=== PATIENT | female | born 1990 | race Caucasian/White ===

== ENCOUNTER 2022-07-16 07:04 | Outpatient (CLI) | payer MEDICAID, SELFPAY ==
[2022-07-16 08:22] LABS: Basophils Percent Auto 0.3 % (0.2-1.2); Eosinophils Absolute Auto 0.4 K/mm3 (0-0.3); Eosinophils Percent Auto 3.9 % (0-4.4); Hematocrit 36.8 % (37.0-47.0); Hemoglobin 12.6 g/dL (12.0-15.0); Immature Granulocyte Absolute 0.06 K/mm3 (0.00-0.031); Immature Granulocyte Percent A 0.7 % (0-0.5); Lymphocytes Absolute Auto 1.71 K/mm3 (0.9-3.2); Lymphocytes Percent Auto 18.7 % (18.3-44.2); Mean Corpuscular HGB Conc 34.2 g/dl (32-36); Mean Corpuscular Volume 99.2 fl (80-100); Mean Platelet Volume 10.2 fl (7.4-10.4); Monocytes Absolute Auto 0.6 K/mm3 (0.1-0.6); Monocytes Percent Auto 6.3 % (2.6-8.5); Neutrophils Absolute Auto 6.4 K/mm3 (1.3-6.7); Neutrophils Percent Auto 70.1 % (45.5-73.1); Platelet Count Result 168 k/mm3 (150-375); Red Blood Count 3.71 M/mm3 (4.2-5.4); Red Cell Distribution Width 12.5 % (11.5-14.5); White Blood Count 9.2 K/mm3 (4.5-10.0)
[2022-07-16 08:31] LABS: Glucose 1 Hour PP 50gm Dose 100 mg/dL
[2022-07-16 09:14] LABS: HIV 1/2 Ab P24 Ag Result Negative (Negative)
== END 2022-07-16 07:05 | disposition home or self-care (01) ==
PROVIDERS: Visit Provider Obstetrics & Gynecology
DX: Z34.90 Encounter for supervision of normal pregnancy, unspecified, unspecified trimester (principal)
CPT/HCPCS: 36415; 82947; 85025; 86703; G0432

== ENCOUNTER 2022-08-19 13:36 | Outpatient (CLI) | payer OTHER, SELFPAY ==
[2022-08-19 15:53] LABS: Rapid Plasma Reagin Non-Reactive (NonReactive)
[2022-08-19 20:51] LABS: Hepatitis B Surface Antigen Negative (Negative); Rubella IgG Antibody 20.1 IU/ML
== END 2022-08-19 13:37 | disposition home or self-care (01) ==
LOC: ANHLAB 13:43
PROVIDERS: Visit Provider Obstetrics & Gynecology
DX: Z34.90 Encounter for supervision of normal pregnancy, unspecified, unspecified trimester (principal)
CPT/HCPCS: 36415; 86592; 86644; 86747; 86762; 86900; 86901; 87086; 87340

== ENCOUNTER 2022-10-15 07:32 | Inpatient (IN) | payer OTHER, SELFPAY ==
[2022-10-15] VITALS (24 sets, daily range): BP systolic 95–129; BP diastolic 54–99; PULSE 94–122; TEMP 36.8–37.2; O2SAT 97; BMI 26.4
[2022-10-15 08:24] LABS: Basophils Absolute Auto 0.1 K/mm3 (0.0-0.1); Basophils Percent Auto 0.7 % (0.2-1.2); Eosinophils Absolute Auto 0.1 K/mm3 (0-0.3); Eosinophils Percent Auto 1.5 % (0-4.4); Hematocrit 39.4 % (37.0-47.0); Hemoglobin 13.6 g/dL (12.0-15.0); Immature Granulocyte Absolute 0.05 K/mm3 (0.00-0.031); Immature Granulocyte Percent A 0.6 % (0-0.5); Lymphocytes Absolute Auto 1.46 K/mm3 (0.9-3.2); Lymphocytes Percent Auto 16.8 % (18.3-44.2); Mean Corpuscular HGB Conc 34.5 g/dl (32-36); Mean Corpuscular Hemoglobin 33.3 pg (26-34); Mean Corpuscular Volume 96.6 fl (80-100); Mean Platelet Volume 11.8 fl (7.4-10.4); Monocytes Absolute Auto 0.6 K/mm3 (0.1-0.6); Monocytes Percent Auto 6.5 % (2.6-8.5); Neutrophils Absolute Auto 6.4 K/mm3 (1.3-6.7); Neutrophils Percent Auto 73.9 % (45.5-73.1); Platelet Count Result 163 k/mm3 (150-375); Red Blood Count 4.08 M/mm3 (4.2-5.4); Red Cell Distribution Width 12.9 % (11.5-14.5); White Blood Count 8.7 K/mm3 (4.5-10.0)
--- NOTE | 2022-10-15 08:27 | LDADM ---
This patient, Lisandra Freeman, was admitted to Labor/Delivery/Recovery 102 on 10/15/22 at 07:32. Plans for labor, pain management and were discussed with patient. Patient/family oriented to hospital policies and general routines including ID bracelet, bed and alarms, visiting hours, pain management, procedures, bathroom and other care routines, personal items, smoking policy, room service/diet and guest tray routines, infant security routines, and visiting hours. Patient/Family are encouraged to report perceived risks to care and to ask questions if they do not understand what they are told or what they should do. See OBIX for further documentation.
--- NOTE | 2022-10-15 11:59 | WPDHPUPDATE1 ---
History and Physical Update Update Date/Time: 10/15/22 11:59 32 yo at 39w0d who presents after spontaneous rupture of membranes at 0600. pt reports regular contractions q 5 min. She reports good movement. History and Physical has been reviewed, including an updated exam of the patient. There are NO changes in the patient's condition. Risks, benefits, and alternatives have been discussed and questions answered. Patient agrees to proceed with procedure. A/P: 32 yo at 39w0 who presents with SROM grossly ruptured on exam admit to L&D routine admission orders Rh+ GBS neg FHT cat 1 expectant management
[2022-10-15] MEDS: LACTATED RINGERS 1,000 ML 125 ML IV CONT (13:01)
[2022-10-15] MEDS: OXYTOCIN 30 UNITS/NS 500 ML 30 UNITS/500 ML BAG IV CONT (13:01)
[2022-10-15 15:30] LABS: Rapid Plasma Reagin Non-Reactive (NonReactive)
--- NOTE | 2022-10-15 15:53 | PM.OBPRVD ---
OB - Delivery Note Procedure Procedure: Patient pushed for a spontaneous vaginal delivery. A nuchal cord x 2 was noted and delivered through. The fetus was delivered atraumatically and placed on the maternal abdomen. The cord was clamped and cut after 1 minute of life. The cord was double clamped and cut and a segment of cord was collected for cord gases. Cord blood was collected for blood type and Coomb's testing. The placenta delivered spontaneously and was noted to be intact. The perineum was inspected and there were no lacerations noted. The uterus was firm and good hemostasis was noted. The patient and fetus were stable in the delivery room. Induction method: None Delivery augmentation: Pitocin Delivery monitor: External FHT Route of delivery: Episiotomy description: None Laceration Description: None Specimen: No Quantitative Blood Loss (ml): 200 Anesthesia type: None Disposition: Floor () Complications: No immediate complications [place] Baby Date of : 10/15/22 Time of : 15:44 Weeks of gestation at delivery: 39 Infant gender: Female Weight (pounds): 6 Weight (ounces): 13 presentation: vertex position: Right Occiput Anterior Placenta delivery description: Spontaneous Cord Vessel Description: 3 Vessels, Nuchal Cord (x2) and Loose score one minute: 8 score five minutes: 9
[2022-10-15] MEDS: OXYTOCIN 30 UNITS/NS 500 ML 30 UNITS/500 ML BAG 125 UNITS IV CONT (16:20)
[2022-10-16 05:28] LABS: Hematocrit 35.5 % (37.0-47.0)
[2022-10-16 07:25] VITALS: BP 119/70; PULSE 81; RESP 16; TEMP 36.7; O2SAT 100
--- NOTE | 2022-10-16 07:34 | PM.OBDSVD ---
DS: Admitting Diagnosis Discharge Date 10/16/22 Admitting Diagnosis spontaneous rupture of membranes at term OB - DS: Summary OB Procedures : None OB Procedures Intrapartum: Spontaneous Vag Delivery OB Procedures: : None Status at Discharge Functional status at discharge: independent ambulation Overall status at discharge: patient is back to baseline Time Spent with Patient Time attestation: Total time spent providing and/or coordinating discharge services: Time spent: Less than 30 minutes Exam Const: General: comfortable and no acute distress Resp: Effort & Inspection: normal respiratory effort Auscultation: clear to auscultation bilaterally Cardio: Rate: regular rate GI: GI Palp: Yes Soft to palpation Auscultation: normal bowel sounds Other: Fundus firm below umbilicus Psych: Appearance: grossly normal Mental Status: mental status grossly normal Affect: normal affect DS: Data Data Completed and Pending Labs on day of discharge: Labs from last 24 hours 10/16/22 10/15/22 10/15/22 05:17 08:18 08:17 WBC 8.7 RBC 4.08 L Hgb 12.0 13.6 Hct 35.5 L 39.4 MCV 96.6 MCH 33.3 MCHC 34.5 RDW 12.9 Plt Count 163 MPV 11.8 H Immature Gran % (Auto) 0.6 H Neut % (Auto) 73.9 H Lymph % (Auto) 16.8 L [place] % (Auto) 6.5 Eos % (Auto) 1.5 Baso % (Auto) 0.7 Lymph # (Auto) 1.46 [place] # (Auto) 0.6 Eos # (Auto) 0.1 Baso # (Auto) 0.1 Abs Immat Gran (auto) 0.05 H Absolute Neuts (auto) 6.4 Absolute Nucleated RBC 0.0 Nucleated RBC % 0.0 RPR Blood Type O Positive Antibody Screen Negative 10/15/22 08:17 WBC RBC Hgb Hct MCV MCH MCHC RDW Plt Count MPV Immature Gran % (Auto) Neut % (Auto) Lymph % (Auto) [place] % (Auto) Eos % (Auto) Baso % (Auto) Lymph # (Auto) [place] # (Auto) Eos # (Auto) Baso # (Auto) Abs Immat Gran (auto) Absolute Neuts (auto) Absolute Nucleated RBC Nucleated RBC % RPR Non-reactive Blood Type Antibody Screen Discharge Plan Discharge Attending physician on discharge: Raul Fitzgerald Discharging Clinician: Raul Fitzgerald Patient Disposition: Home, Self-Care Activity: as tolerated and pelvic rest Diet: regular Patient Instructions: Antibiotic Form, Vaginal Delivery (DC) Stand Alone Forms: General Discharge Information Follow-up/Referrals: Lisandra Norris MD [Physician] - 6 Weeks Discharge Medications: New acetaminophen [Mapap (acetaminophen)] 325 mg Tablet 650 mg PO Q6H PRN (Reason: Mild Pain (1-3) Or Headache) Qty: 30 0RF ibuprofen 600 mg Tablet 600 mg PO Q6H PRN (Reason: Cramping) Qty: 30 0RF Continued 21-iron fu-folic acid 14 mg iron- 400 mcg tablet 1 tablet PO DAILY cholecalciferol (vitamin D3) 325 mcg (13,000 unit) capsule 325 mcg PO WEEKLY Date of admission: 10/15/22 07:32 Primary Care Provider: UNKNOWN,DOCTOR Admitting Provider: Lisandra Norris Attending physician on admission: Lisandra Norris Condition: Stable
[2022-10-16] MEDS: DOCUSATE SODIUM 100 MG CAPSULE PO (08:42)
[2022-10-16] MEDS: MULTIVIT/MIN/PREN/FOL AC/IRON TABLET 1 TAB PO (08:42)
[2022-10-16 12:00] VITALS: BP 118/76; PULSE 91; RESP 16; TEMP 37; O2SAT 97
== END 2022-10-16 17:20 | disposition home or self-care (01) | DRG 560 ==
LOC: ANHLDR 15:22 → ANHOB2 10-16 07:36 → ANHLDR 10-20 08:24 → ANHOB2 10-20 08:24
PROVIDERS: Admitting Provider Student in an Organized Health Care Education/Training Program; Visit Provider Student in an Organized Health Care Education/Training Program
DX: O69.81X0 Labor and delivery complicated by cord around neck, without compression, not applicable or unspecified (principal); Z37.0 Single live birth; Z3A.39 39 weeks gestation of pregnancy
CPT/HCPCS: 36415; 84112; 85014; 85018; 85025; 86592; 86850; 86900; 86901; A9270; J2590; J7120

== ENCOUNTER 2022-11-27 10:05 | Emergency (ER) | payer OTHER, SELFPAY ==
[2022-11-27 10:48] VITALS: BP 124/95; PULSE 114; RESP 18; TEMP 36.6; O2SAT 96
--- NOTE | 2022-11-27 11:54 | ED.LOWEXIN ---
HPI - Extremity Injury (Lower) General Chief Complaint: Extremity Injury, Lower <TODD Lomeli Last Filed: 11/27/22 14:36> Stated Complaint: left side leg and hip pain. <Mckayla Asher PA-C - Last Filed: 11/27/22 14:36> Time Seen by Provider: 11/27/22 11:33 <TODD Lomeli Last Filed: 11/27/22 14:36> History of Present Illness HPI Narrative: Patient is a 32-year-old female here for evaluation of left lower extremity pain over the past several weeks. Patient states that the pain begins in her low back and radiates down the lateral aspect of her left leg into her foot. The pain is worse with certain positions and movements. She was taking ibuprofen and Tylenol with good relief but stopped taking these because she did not want to take too much. She saw a physical therapist and her family who instructed her with exercises to do that she has been compliant with; presents today due to concerns of some difficulty dorsiflexing her foot. Patient has been able to walk. No saddle anesthesia, incontinence or retention of bowel or bladder. <TODD Lomeli Last Filed: 11/27/22 14:36> Related Data Home Medications: Home Medications Medication Instructions Recorded Confirmed vits,calcium 21-iron fum 1 tablet PO DAILY 06/23/22 10/15/22 14 mg iron-folic acid 400 mcg tablet <TODD Lomeli Last Filed: 11/27/22 14:36> Allergies/Adverse Reactions: Allergies Allergy/AdvReac Type Severity Reaction Status Date / Time cefaclor [From [facility]] Allergy Severe Rash Verified 11/27/22 10:52 <TODD Lomeli Last Filed: 11/27/22 14:36> Review of Systems Review of Systems: Gen: Denies fevers or chills Eyes: Denies eye pain or visual change ENT: Denies congestion Respiratory: Denies shortness of breath or cough CV: Denies chest pain or palpitations GI: Denies abdominal pain nausea, emesis or diarrhea : denies burning, urgency, frequency or hematuria Musculoskeletal: Reports left leg pain. Neuro: Denies numbness, tingling, weakness or focal weakness Skin: Denies rash Except as documented, all other systems reviewed and negative <Mckayla Asher PA-C - Last Filed: 11/27/22 14:36> [facility] Past Medical History Medical History: Medical History <Mckayla Asher PA-C - Last Filed: 11/27/22 14:36> Family History Family History: Family History Other Breast cancer Diabetes mellitus Heart disease Hypertension <Mckayla Asher PA-C - Last Filed: 11/27/22 14:36> Social History Social History: Social History (Updated 11/08/22 @ 09:18 by Ladi Montilla MA) Smoking status: Never smoker Alcohol intake: never Substance use: never Substance use type: does not use Lack of Transportation: No Lack of Food: Never True Current Housing: I Have Housing Concerned About Future Housing: No Difficulty Paying Gas/Electric Bills: No Difficulty Paying for Meds: No Currently Unemployed: No Education: Bachelor's Degree Difficulty w/ Childcare or Family Care: No Additional occupation/education comments: stay at home mom Gender identity (if verbalized by the patient): Female Sexual Orientation (if Verbalized by the Patient): Straight or Heterosexual Spiritual care concerns: No <Mckayla Asher PA-C - Last Filed: 11/27/22 14:36> Exam Narrative: APPEARANCE: Well appearing, no pain in distress, well-nourished. Head: Normocephalic and atraumatic. EYES: PERRLA/EOMI, conjunctivae clear NOSE: No nasal drainage EARS: External ear normal in appearance THROAT: Oropharynx is clear. Mucous membranes are moist. NECK: Supple. No adenopathy, no masses. RESPIRATORY: Airway patent, respirations nonlabored. Clear to auscultation bilate
[2022-11-27 12:19] VITALS: BP 131/82; PULSE 92; RESP 18; O2SAT 97
== END 2022-11-27 12:21 | disposition home or self-care (01) ==
PROVIDERS: Emergency Provider Emergency Medicine
DX: M54.42 Lumbago with sciatica, left side (principal)
CPT/HCPCS: 99281

== ENCOUNTER 2023-01-04 06:34 | Outpatient (CLI) | payer OTHER, SELFPAY ==
--- NOTE | ~2023-01-04 | MR_ITS ---
EXAMINATION: MR lumbar spine wo con DATE: 01/04/2023 07:32 INDICATION: Sciatica. Low back pain. Left foot drop. TECHNIQUE: Magnetic resonance imaging (MRI) of the lumbar spine was performed without intravenous con trast. Sequences included sagittal T2-weighted FSE, sagittal T2-weighted FS FSE, sagittal T1-weighted FSE, and axial T2-weighted FSE. COMPARISON: None FINDINGS: There is 7 degrees dextrocurvature of lumbar spine. There is mild chronic anterior wedging of T12-L3 vertebral bodies. There is mild chronic height loss of L5 vertebral body posteriorly. There is mildly decreased disc height at L1-L2 and L4-L5 and moderately decreased disc height at L5-S1. Th e distal spinal cord signal intensity is normal. The conus medullaris is at L1-L2. The following disc levels are specifically discussed: L1-L2: The disc is bulging. There is no facet joint osteoarthritis. There is no neural foraminal sten osis. There is mild central canal stenosis. L2-L3: The disc does not extend beyond the endplate margin. There is moderate right and mild left fac et joint osteoarthritis. There is no neural foraminal stenosis. There is no central canal stenosis. L3-L4: The disc is bulging and has an annular fissure. There is mild right and moderate left facet jeannie int osteoarthritis. There is no neural foraminal stenosis. There is mild central canal stenosis. L4-L5: The disc is bulging with superimposed right central extrusion. There is moderate bilateral fac et joint osteoarthritis. There is mild bilateral neural foraminal stenosis. There is mild central can al stenosis. L5-S1: The disc is bulging with superimposed central and left subarticular zone extrusion with mass e ffect on the left S1 nerve root in left lateral recess. There is moderate right and severe left facet joint osteoarthritis. There is mild bilateral neural foraminal stenosis. There is mild central canal stenosis. There is severe stenosis of left lateral recess. IMPRESSION: 1. Moderate lumbar spondylosis. Of note, an extrusion at L5-S1 exerts mass effect on left S1 nerve ro ot. Reviewed, dictated and finalized at location A. [employer] IMPRESSION: 1. Moderate lumbar spondylosis. Of note, an extrusion at L5-S1 exerts mass effe ct on left S1 nerve root.
== END 2023-01-04 06:35 | disposition home or self-care (01) ==
PROVIDERS: Visit Provider Nurse Practitioner Adult Health
DX: M47.26 Other spondylosis with radiculopathy, lumbar region (principal); M51.27 Other intervertebral disc displacement, lumbosacral region
CPT/HCPCS: 72148

== ENCOUNTER 2023-01-20 08:00 | Outpatient (RCR) | payer OTHER, SELFPAY ==
--- NOTE | 2022-12-21 10:46 | PTOPEVAL1 ---
Assessment and note entered by Nerissa Tate, PT, DPT Evaluation Information Assessment Status Evaluation Diagnosis lumbar radiculopathy Onset Nov 10 Subjective Information Pt states on Nov 10, she was getting into bed and tweaked her back. She states since then she has major back pain and with sciatic nerve pain. She states she went to the chiropractor who adjusted her and helped with her back pain. She states she has numbness, tingling, and weakness in her LLE and states her feet do not move at well. She states she has the worst pain in the morning and it gets better throughout the day. She states she trips over her feet all the time and is worried as she is currently caring for her . Reported Pain Level Pain Score 3: Self Report Assessment PT Clinical Summary Lisandra presents to therapy today for her initial evaluation with a diagnosis of lumbar radiculopathy. Today she demonstrates decreased active ROM of her LLE, limited by strength. She has decreased strength on the L side with a majority of her deficits noted in the L ankle. She demonstrates L sided foot drop during swing phase and foot slap during heel strike during ambulation , as well as a R sided trunk lean. She had a positive Slump test as well as a straight leg raise. She did not initial demonstrate a movement bias to alter symptoms this date. Skilled physical therapy services are indicated to address the deficits noted above, to promote centralization of symptoms, to manage pain, and to return to baseline function. Plan of Care Interventions Check Out for Orthotic/Pr,Electrical Stimulation, Gait Training,Hot Pack/Cold Pack,Manual Therapy, Mechanical Traction,Neuro Re-education,Patient/ Caregiver Education,Therapeutic Activities, Therapeutic Exercise PT Services Indicated Yes Treatment Frequency and 2x/wk for 4 wks Duration These treatments will address the objective and functional deficits as defined above. The patient will be advanced safely and appropriately in order for the patient to progress towards his/her prior level of function. Additional exercises will be introduced and as well as a comprehensive home exercise program upon discharge, if needed, ?to ensure carryover of functional gains achieved in the clinic. This treatment plan has been reviewed and agreement upon by the patient.
--- NOTE | 2023-01-20 08:51 | PTOPPROG ---
Assessment and note entered by Nerissa Tate, PT, DPT Evaluation Information Assessment Status Progress Diagnosis lumbar radiculopathy Onset Nov 10 Subjective Information Pt states she feels like her core strength and her body awareness has improved. She is unsure if her radicular symptoms have improved or if she is just getting more used to them. Pt states she follows up with neuro in 1 week. Assessment PT Clinical Summary Lisandra presents to therapy today for her progress report following 7 visits of skilled therapy to treat her lumbar radiculopathy. Today she continues to demonstrates significant LLE weakness when compared to her RLE. She continues to report numbness and tingling down her LLE. She has made minimal progress since starting therapy. It is recommended she follow up with her referring provider and neuro prior to continuing therapy. Plan of Care Interventions Check Out for Orthotic/Pr,Electrical Stimulation, Gait Training,Hot Pack/Cold Pack,Manual Therapy, Mechanical Traction,Neuro Re-education,Patient/ Caregiver Educati,Therapeutic Activities, Therapeutic Exercise PT Services Indicated Yes Treatment Frequency and pending follow up with neuro Duration These treatments will address the objective and functional deficits as defined above. The patient will be advanced safely and appropriately in order for the patient to progress towards his/her prior level of function. Additional exercises will be introduced and as well as a comprehensive home exercise program upon discharge, if needed, ?to ensure carryover of functional gains achieved in the clinic. This treatment plan has been reviewed and agreement upon by the patient.
--- NOTE | 2023-02-22 13:49 | PTOPDC ---
Assessment and note entered by Nerissa Tate, PT, DPT Evaluation Information Assessment Status Discharge - Pt Not Present Diagnosis lumbar radiculopathy Onset Nov 10 Subjective Information Called and spoke with patient to follow up. She states she is having surgery next week and after that it will be determined if she needs therapy or not. She knows she will need a new order if she is to continue. Assessment PT Clinical Summary Lisandra completed 8 visits of skilled therapy from 12/21/22 to 01/20/23. She will be discharged at this time pending surgery. Plan of Care Interventions Check Out for Orthotic/Pr,Electrical Stimulation, Gait Training,Hot Pack/Cold Pack,Manual Therapy, Mechanical Traction,Neuro Re-education,Patient/ Caregiver Educati,Therapeutic Activities, Therapeutic Exercise PT Services Indicated Yes Treatment Frequency and discharge Duration
== END 2023-02-22 14:51 | disposition home or self-care (01) ==
LOC: ANHGOSHPT 08:00
PROVIDERS: Visit Provider Nurse Practitioner Adult Health
DX: M54.16 Radiculopathy, lumbar region (principal)
CPT/HCPCS: 97012; 97110; 97112; 97140; 97163; 97530

== ENCOUNTER 2023-02-16 14:55 | Outpatient (CLI) | payer OTHER, SELFPAY ==
[2023-02-16 15:39] LABS: Basophils Percent Auto 0.3 % (0.2-1.2); Eosinophils Absolute Auto 0.2 K/mm3 (0-0.3); Eosinophils Percent Auto 2.6 % (0-4.4); Hematocrit 40.6 % (37.0-47.0); Hemoglobin 13.9 g/dL (12.0-15.0); Immature Granulocyte Absolute 0.02 K/mm3 (0.00-0.031); Immature Granulocyte Percent A 0.3 % (0-0.5); Lymphocytes Percent Auto 40.3 % (18.3-44.2); Mean Corpuscular HGB Conc 34.2 g/dl (32-36); Mean Corpuscular Hemoglobin 32.9 pg (26-34); Mean Corpuscular Volume 96.2 fl (80-100); Mean Platelet Volume 10.2 fl (7.4-10.4); Monocytes Absolute Auto 0.5 K/mm3 (0.1-0.6); Monocytes Percent Auto 6.6 % (2.6-8.5); Neutrophils Absolute Auto 3.5 K/mm3 (1.3-6.7); Neutrophils Percent Auto 49.9 % (45.5-73.1); Platelet Count Result 229 k/mm3 (150-375); Red Blood Count 4.22 M/mm3 (4.2-5.4); Red Cell Distribution Width 12.2 % (11.5-14.5)
[2023-02-16 15:48] LABS: Anion Gap 8 mmol/L (8-16); Blood Urea Nitrogen 17 mg/dL (7-17); Calcium 9.1 mg/dL (8.4-10.2); Carbon Dioxide 28 mmol/L (22-30); Chloride 104 mmol/L (98-107); Estimated Glomerular Filt Rate > 60; Glucose 100 mg/dL (65-110); Potassium 4.2 mmol/L (3.4-5.0); Sodium 140 mmol/L (137-145)
== END 2023-02-16 14:56 | disposition home or self-care (01) ==
LOC: ANHLAB 14:57
PROVIDERS: Visit Provider Neurological Surgery
DX: M21.372 Foot drop, left foot (principal); M54.16 Radiculopathy, lumbar region; Z01.818 Encounter for other preprocedural examination
CPT/HCPCS: 36415; 80048; 85025

== ENCOUNTER 2023-02-22 08:03 | Outpatient (CLI) | payer OTHER, SELFPAY ==
--- NOTE | 2023-02-22 08:11 | ECG_ITS ---
Measurements Intervals [place] Rate: 92 P: 80 OK: 141 QRS: 88 QRSD: 101 T: 68 QT: 333 QTc: 413 Interpretive Statements SINUS RHYTHM WITH SINUS ARRHYTHMIA BASELINE ARTIFACT- I, II, III, AVR, AVL, AVF NORMAL ECG NO PREVIOUS ECG AVAILABLE FOR COMPARISON Electronically Signed On 02-22-2023 8:59:44 CDT by Silvio Brown D.O.
[2023-02-22 09:52] LABS: INR 1.1; Prothrombin Time 13.5 Seconds (11.1-14.7)
[2023-02-22 09:53] LABS: Partial Thromboplastin Time 28.8 SECONDS (22.3-36.8)
== END 2023-02-22 08:04 | disposition home or self-care (01) ==
LOC: ANHSURGERY 08:08
PROVIDERS: Visit Provider Neurological Surgery
DX: M51.16 Intervertebral disc disorders with radiculopathy, lumbar region (principal); Z01.818 Encounter for other preprocedural examination
CPT/HCPCS: 36415; 85610; 85730; 86850; 86900; 86901; 93005

== ENCOUNTER 2023-03-16 00:51 | Day surgery (SDC) | payer OTHER, SELFPAY ==
[2023-02-21 15:20] VITALS: BMI 21.4
--- NOTE | 2023-02-21 15:24 | PC.NURSE ---
Addendum entered by Porsche Betts RN 03/08/23 14:51: PT TO ARRIVE AT 0900 ON 03/16/23 FOR SURGERY AT 1100. Original Note: Report to the Outpatient Waiting Room, entrance under the green pavilion located off [facility], at time 8:30 on date 03/02/23. Planned Procedure Time: 10:30. Time changes happen often and if your time is changed the preop area will call you the afternoon before. - You and your visitor will be asked to self-screen and do not enter if you have any COVID symptoms. - Only one visitor is requested with a max of two and NO children visitors are allowed at this time. - The patient visitor may be requested to leave or wait in car when not with patient due to distancing restrictions. - A mask is optional within the hospital at this time. Patients may have clear liquids (water, carbonated beverages, clear teas, apple juice) until 3 hours prior to surgery (7:30) with a maximum of 20 ounces. - No food from midnight until time of surgery Take the following medications with a SIP of water the morning of surgery: N/A DO NOT STOP ANY OF YOUR OTHER PRESCRIPTION MEDICATIONS PRIOR TO SURGERY EXCEPT THE FOLLOWING Medications to discontinue per physician: N/A Date to take last dose: N/A Please no make-up, nail maori, hairspray, perfume, deodorant, or body powder the day of surgery. No jewelry (including any body piercings) or valuables the day of surgery, leave them at home. Please take a shower or bath the night before, or the morning of, surgery with an antibacterial soap. Wear comfortable, loose fitting clothing. - Jewelry must be removed prior to entering the operating room. Rings and piercings that are not removed may be cut off. - The hospital will not accept responsibility for valuables. - Please leave all valuables, including medications, at home the day of surgery. If you are going home after surgery, a licensed otr truck driver must drive you home. - NO public transportation without another adult if you receive anesthesia. - We recommend that an adult stay with you for 24 hours following discharge. - We also recommend that you do not drive, make important decision, drink alcoholic beverages, or take any drugs that were not prescribed by your health care provider for at least 24 hours after your discharge time. Follow any additional instructions given to you from your surgeon. If you or anyone in your household have experienced Covid symptoms in the past week, please notify your surgeon or the nurse liaison at the phone number below for possible testing. Telephone instructions given to ARUN ENRIQUEZ and asked if any additional questions and then verbalized understanding. Patient advised to call surgeon office or pre surgery nurse liaison [phone] if any additional questions.
--- NOTE | 2023-03-08 14:52 | PC.NURSE ---
Pt states no changes in medications or health history since initial interview. New pre-op instructions reviewed with pt. Pt denies further questions at this time.
[2023-03-16] VITALS (18 sets, daily range): BP systolic 72–120; BP diastolic 43–75; PULSE 62–107; RESP 12–18; TEMP 36.9–37.1; O2SAT 100
--- NOTE | ~2023-03-16 | XR_ITS ---
XR fluoroscopy no charge Lumbar microdiscectomy TECHNIQUE: Fluoroscopy used during lumbar microdiscectomy performed by [Kaity Payton MD] on 03/16/2023. 3 seconds of fluoroscopy with 2 fluoroscopic images images captured. FINDINGS: Correlate with procedure note. IMPRESSION: Fluoroscopy used during lumbar microdiscectomy. Reviewed, dictated and finalized at location A.
--- NOTE | 2023-03-16 09:03 | P.PNAN_ITS ---
Anes - Initial Pre Proc Eval Procedure: Operation Date: 03/16/23 11:00 Proposed Procedures p Left L5-S1 Microdiscectomy - Kaity Payton MD Date/Time: 03/16/23 09:03 Surgeon: Kaity Payton MD Pre Op Diagnosis: lumbar disc herniation w/ radicuopathy, foot drop Patient Data Age: 32 Gender: F Height: 1.63 m Weight: 56.7 kg Allergies Allergy/AdvReac Type Severity Reaction Status Date / Time cefaclor [From Ceclor] Allergy Severe Rash Verified 03/16/23 10:00 Home Medications Medication Instructions Recorded Confirmed Type No Home Medications 02/21/23 03/08/23 History Patient hx anesthesia problems: none Family hx anesthesia problems: none Results Review: All pre-operative results and documents have been reviewed as part of the pre- operative evaluation. [facility] Past Medical History Medical History (Updated 03/16/23 @ 09:04 by Myles Emmanuel DO) Anxiety Lumbar radiculopathy Family History Family History Other Breast cancer Diabetes mellitus Heart disease Hypertension Social History Social History Smoking status: Never smoker Alcohol intake: never Substance use: never Substance use type: does not use Lack of Transportation: No Lack of Food: Never True Current Housing: I Have Housing Concerned About Future Housing: No Difficulty Paying Gas/Electric Bills: No Difficulty Paying for Meds: No Currently Unemployed: No Education: Bachelor's Degree Difficulty w/ Childcare or Family Care: No Living arrangements: with family Occupation/Education: unemployed Additional occupation/education comments: stay at home mom Gender identity (if verbalized by the patient): Female Sexual Orientation (if Verbalized by the Patient): Straight or Heterosexual Spiritual care concerns: No Anes - Eval Final PreProcedure Day of Procedure 03/16/23 09:03 Patient weight: normal Heart: regular rate and rhythm Lungs: clear to auscultation Airway: Mallampati scale class II Neurological: alert and oriented Last oral intake: >/= 8 hours ASA classification: II Emergent: no Anesthetic plan: proceed Anesthesia type and monitoring: general ETT and standard monitoring Results Review: All pre-operative results and documents have been reviewed as part of the pre- operative evaluation. Informed Consent: The patient's anesthetic plan and its attendant risks and benefits were discussed with the patient/family/POA. Questions were solicited and answers provided to the satisfaction of the patient/family/POA.
[2023-03-16] MEDS: LACTATED RINGERS 1,000 ML 30 ML IV CONT ×2 (09:30→12:55)
--- NOTE | 2023-03-16 10:11 | WPDHPUPDATE1 ---
History and Physical Update Update Date/Time: 03/16/23 10:11 History and Physical has been reviewed, including an updated exam of the patient. There are NO changes in the patient's condition. Risks, benefits, and alternatives have been discussed and questions answered. Patient agrees to proceed with procedure.
[2023-03-16] MEDS: ceFAZolin 2 GM/D5W 50 ML 2 GM/50 ML BAG IVPB (10:27)
[2023-03-16] MEDS: HEMOSTATIC MATRIX (SURGIFLO with THROMBIN) KIT 1 KIT XX (11:03)
[2023-03-16] MEDS: BUPIVACAINE/EPINEPHRINE 0.5% 50 ML VIAL 20 ML INFILTRATE (11:03)
--- NOTE | 2023-03-16 13:02 | P.OP_ITS ---
Procedure Note - Detailed Date of Procedure 03/16/23 Pre-op Diagnosis lumbar disc herniation w/ radicuopathy, foot drop Post-op Diagnosis Same Procedure Performed 1. Left L5-S1 microdiskectomy 2. Use of microscope for microsurgical dissection 3. Use of C-arm for fluoroscopy Surgeon Kaity Payton MD Operations And Maintenance Manager [facility] Anest[facility] General and Local Indications Ms. Freeman is a 32-year-old female with history of left lumbar radiculopathy and weakness in plantar and dorsiflexion of the left foot who was found to have a large disc herniation at L5-S1. Her pain essentially resolved with physical therapy and medications, but the weakness persisted. Surgery in the form of microdiskectomy was recommended to help her neurologic deficit improve more quickly. Risks including pain, infection, bleeding, CSF leak, nerve damage, worsening symptoms, failure to improve symptoms, weakness, paresthesias, and paralysis were discussed. The patient provided written informed consent to proceed. Findings Annulotomy noted on left side at L5-S1. No large free fragment was discovered. Small pieces of disc material and endplate were found. Small disc fragments below the PLL were found and removed. The nerve roots felt well decompressed. Description of Procedure The patient was brought into the OR where general anesthesia was induced. The patient was turned prone onto the operating table with Karthik frame. All pressure points were padded. The planned incision was marked with the use of the C-arm. The incision was prepped and draped in usual sterile fashion. Time out was performed, and local anesthetic was injected into the planned incision. The midline lumbar incision was opened with a 10-blade scalpel. The soft tissue was dissected with the bovie to the spinous process. A subperiosteal dissection was performed to expose the left L5 lamina. An xray confirmed the correct level. Self-retaining retractors were placed. The high speed drill was used to create a laminotomy at L5. Ligamentum and additional bone were removed with a kerrison. The dura and S1 nerve root were exposed. A Woodsen and 4 penfield were used to access the ventral epidural space. An annulotomy was noted on the left side, but there was no significant disc herniation found. Another xray was obtained to confirm we were at the L5-S1 level. Small pieces of endplate and disc material were found and removed. The annulotomy was bipolared and enlarged with an 11- blade scalpel. A nerve hook was used to elevate any free disc fragments which were removed with a pituitary. Bleeding was controlled with the bipolar and Kurtz rgiflo. The nerve roots and dura felt well decompressed. The surgical site was copiously irrigated. The fascia was closed with 0-vicryl. The dermis was closed with 2-0 and 3-0 vicryl. The skin was closed with 4-0 monocryl. Skin glue was applied to the incision. The patient was returned supine to the stretcher, extubated, and taken to PACU. Codes: 59197, 33694 Implants None Estimated Blood Loss -100.0 Drains No Packing No Pathology None sent Complications None Condition Stable Disposition Same day [facility] Billing Surgery - Charge Forward: Surgery Billing
[2023-03-16] MEDS: fentaNYL CITRATE INJ (*CRX) 100 MCG/2 ML VIAL 25 MCG IV PUSH ×2 (13:25→13:31)
[2023-03-16] MEDS: LACTATED RINGERS 1,000 ML 999 ML IV CONT (14:17)
== END 2023-03-16 15:30 | disposition home or self-care (01) ==
PROVIDERS: Visit Provider Neurological Surgery
PROC: (CPT 63030; principal; 2023-03-16 11:00)
DX: M51.17 Intervertebral disc disorders with radiculopathy, lumbosacral region (principal); M21.372 Foot drop, left foot
CPT/HCPCS: 63030; 36415; 86850; 86900; 86901; 99199; J0690; J1100; J1170; J2250; J2370; J2405; J2704; J2710; J3010; J7120

== ENCOUNTER 2023-04-23 13:40 | Outpatient (CLI) | payer OTHER, SELFPAY ==
--- NOTE | ~2023-04-23 | MR_ITS ---
EXAMINATION: MR lumbar spine wo con DATE: 04/23/2023 14:21 INDICATION: Other specified post procedural states. Lumbar microdiscectomy. TECHNIQUE: Magnetic resonance imaging (MRI) of the lumbar spine was performed without intravenous con trast. Sequences included sagittal T2-weighted FSE, sagittal T2-weighted FS FSE, sagittal T1-weighted FSE, and axial T2-weighted FSE. COMPARISON: 01/04/2023 FINDINGS: Approximately 5 degrees lumbar dextrocurvature. Sagittal alignment is normal. Unchanged chronic mild anterior wedging at T12-L2, minimally at L3. Additional unchanged chronic mild posterior vertebral lacey dy height loss at L5. Bone marrow signal is normal throughout. Mild disc height loss at L1-L2, L3-L4 and L4-L5. Unchanged moderate disc height loss at L5-S1. Interval debridement which significantly dec reased size of a previously large, now small central to left subarticular zone disc extrusion at L5-S 1. The conus medullaris terminates at L1-L2. There is normal signal in the caudal spinal cord. New po stoperative scarring along the left-sided and posterior to the L5 spinous process. Paravertebral soft tissues are otherwise unremarkable. The following disc levels are specifically discussed: T12-L1: The disc does not extend beyond the endplate margin. There is mild bilateral facet joint oste oarthritis. There is no neural foraminal stenosis. There is no central canal stenosis. L1-L2: Disc is mildly bulging. There is no facet joint osteoarthritis. There is no neural foraminal s tenosis. There is mild central canal stenosis. L2-L3: The disc does not extend beyond the endplate margin. There is mild left and moderate right fac et joint osteoarthritis. There is no neural foraminal stenosis. There is no central canal stenosis. L3-L4: Disc is bulging with annular fissure. There is mild right and mild to moderate left facet join t osteoarthritis. There is no neural foraminal stenosis. There is mild central canal stenosis. L4-L5: Disc is bulging with superimposed annular fissure and central disc extrusion with disc materia l extending up to 4 mm caudal to the level of the superior endplate of L5. There is moderate bilatera l facet joint osteoarthritis. There is mild bilateral neural foraminal stenosis. There is mild centra l canal stenosis. L5-S1: Disc is bulging with superimposed annular fissure. The previously seen large right paracentra l to left subarticular zone disc extrusion has been nearly entirely resected with minimal residual di sc material extending a couple millimeters cephalad and caudal to the endplate margins in the right f oraminal zone and left subarticular zone. There is moderate bilateral facet joint osteoarthritis. The re is mild bilateral neural foraminal stenosis. Interval decrease in previously severe, now mild sten osis of the left lateral recess. IMPRESSION: 1. Moderate lumbar spondylosis with interval resection of a prior large disc extrusion at L5-S1 with decompression of the previously severely narrowed left lateral recess. Reviewed, dictated and finalized at location A. IMPRESSION: 1. Moderate lumbar spondylosis with interval resection of a prior large disc ex trusion at L5-S1 with decompression of the previously severely narrowed left la teral recess.
== END 2023-04-23 13:41 | disposition home or self-care (01) ==
LOC: ANHIMG 13:41
PROVIDERS: Visit Provider Neurological Surgery
DX: Z98.890 Other specified postprocedural states (principal); M43.06 Spondylolysis, lumbar region
CPT/HCPCS: 72148

== ENCOUNTER 2023-07-12 08:00 | Outpatient (RCR) | payer OTHER, SELFPAY ==
--- NOTE | 2023-04-19 08:27 | OPREHPOC ---
Outpatient Therapy Plan of Care This is a Multidisciplinary Plan of Care that may contain components documented by all disciplines (PT, OT, and ST.)
--- NOTE | 2023-04-19 09:56 | PTOPEVAL1 ---
Assessment and note entered by Lyssa Melchor, PT Evaluation Information Assessment Status Evaluation Diagnosis left foot drop Onset back injury October 2022, footdrop began a few weeks after Subjective Information Patient referred to physical therapy due to left foot drop. Patient injured back getting to bed when 1 month resulting in L5-S1 herniated disc. Patient received physical therapy prior to microdiscectomy in February 2023 . 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 Patient reports numbness and weakness in left foot as well as core weakness since surgery. Patient has AFO for mobility, patient reports falls when ambulating on uneven surfaces. Patient reports she was told my neurosurgeon to avoid lifting, twisting, and bending currently however no further therapy protocol provided. Reported Pain Level Pain Score 0: Self Report Assessment PT Clinical Summary Patient is 32 year old female referred to physical therapy following microdiscectomy L5-S1 with foot drop. Patient injured back getting into bed in October and developed L foot drop a few weeks after. Patient currently wears AFO for L foot and reports falls in community when ambulating on uneven surfaces. Patient currently demonstrates decreased L ankle range of motion, decreased L ankle strength, core weakness. causing impairments in gait and dynamic balance during single leg stance. Patient would benefit from skilled therapy services to improve ankle range of motion and strength in order to improve ability to perform activities and mobility in home and community and decrease fall risk. Will contact neurosurgeon regarding protocol for procedure. Plan of Care Interventions Aquatic Therapy,Electrical Stimulation,Gait Training,Hot Pack/Cold Pack,Manual Therapy,Neuro Re-education,Patient/Caregiver Education,Therapeutic Activities,Therapeutic Exercise Other Interventions taping PT Services Indicated Yes Treatment Frequency and 2x/wk for 4 weeks Duration These treatments will address the objective and functional deficits as defined above. The patient will be advanced safely and appropriately in order for the patient to progress towards his/her prior level of function. Additional exercises will be introduced and as well as a comprehensive home exercise program upon discharge, if needed, ?to ensure carryover of functional gains achieved in the clinic.
--- NOTE | 2023-05-17 14:12 | PCPTNOTE ---
On 05/17/23, the student Gretel Richardson, provided care and completed [facility] documentation on this patient. I have reviewed the student's documentation and agree with the findings.
--- NOTE | 2023-05-20 10:10 | PTOPPROG ---
Assessment and note entered by Nerissa Tate, PT, DPT Evaluation Information Assessment Status Progress Diagnosis left foot drop Onset back injury October 2022, footdrop began a few weeks after Subjective Information Pt states are foot/ankle continues to improve with every visit. She states she feels achy and sore after she exercises. Pt reports 80% return to PLOF . She declines any pain and is only wearing the brace when walking on uneven surfaces. Assessment PT Clinical Summary Lisandra presents to therapy today for her progress report following 8 visits of skilled therapy to treat her L ankle foot drop following a disc herniation. Today she demonstrates improved passive ankle motion, to 15 deg, and improved active dorsiflexion to 5 deg, this is still decreased from the uninvolved side. Her plantarflexion and dorsiflexion strength has improved but is still decreased from her uninvolved side. Her gait has improved without the need for an AFO but still has minor substitutions . Continuation of skilled therapy services are indicated to address remaking deficits, to decreased functional limitations, and to return to PLOF. Plan of Care Interventions Aquatic Therapy,Electrical Stimulation,Gait Training,Hot Pack/Cold Pack,Manual Therapy,Neuro Re-education,Patient/Caregiver Educati,Therapeutic Activities,Therapeutic Exercise Other Interventions taping PT Services Indicated Yes Treatment Frequency and 1x/wk for 6 weeks Duration These treatments will address the objective and functional deficits as defined above. The patient will be advanced safely and appropriately in order for the patient to progress towards his/her prior level of function. Additional exercises will be introduced and as well as a comprehensive home exercise program upon discharge, if needed, ?to ensure carryover of functional gains achieved in the clinic. This treatment plan has been reviewed and agreement upon by the patient.
--- NOTE | 2023-06-29 10:17 | PCPTNOTE ---
Appointment on June 28 was canceled due to provider out sick.
--- NOTE | 2023-07-05 08:23 | PCPTNOTE ---
Patient called to cancel this date due to illness.
--- NOTE | 2023-07-12 08:44 | PTOPDC ---
Assessment and note entered by Nerissa Tate, PT, DPT Evaluation Information Assessment Status Discharge Diagnosis left foot drop Onset back injury October 2022, footdrop began a few weeks after Subjective Information Pt states overall she is doing well, she reports progress feel slow at this point. She reports 89% improvement in overall symptoms. She states she still feel cautious and does not trust her L leg like she does her R. Reported Pain Level Pain Score 0: Self Report Assessment PT Clinical Summary Lisandra presents to therapy today for her progress report following 13 visits of skilled therapy to treat her L ankle foot drop following a disc herniation. Today she continues to demonstrates decreased active and passive L ankle motion, decreased L ankle strength, and gait deviations but is making slow progress towards normal values. She reports d/t her schedule she cannot continue with therapy at this time. She will be discharged at this time with instructions to follow up with referring provider if needed.
== END 2023-07-12 10:33 | disposition home or self-care (01) ==
LOC: ANHGOSHPT 08:00
PROVIDERS: Visit Provider Neurological Surgery
DX: Z48.89 Encounter for other specified surgical aftercare (principal); M21.372 Foot drop, left foot
CPT/HCPCS: 97014; 97110; 97112; 97140; 97163; 97530; G0283